=== PATIENT | male | born 1935 | race Caucasian/White ===

== ENCOUNTER 2019-10-08 08:22 | Outpatient (CLI) | payer MEDICARE, SELFPAY ==
--- NOTE | ~2019-10-08 | DEXA_ITS ---
BMD(1) Young-Adult(2) Age-Matched(3) Region (g/cm2) T-score Z-score WHO Classification L1 1.659 4.0 4.6 - L2 1.637 3.2 3.8 - L3 1.895 5.1 5.7 - L4 1.807 4.2 4.9 - L1-L4 1.757 4.2 4.8 - Trend: L1-L4 Change vs Change vs Measured Age BMD(1) Baseline Previous Date (years) (g/cm2) (%) (%) 10/08/2019 [age] 1[age]757 baseline - 1 - Statistically 68% of repeat scans fall within 1SD (+- 0.010 g/cm2 for AP Spine L1-L4) 2 - [place] (Combined NHANES (ages 20-30) / Wireless Seismic (ages 20-40)) AP Spine Reference Population (v112) 3 - Matched for Age, Weight (males 25-100 kg), Ethnic 11 - World Health Organization - Definition of Osteoporosis and Osteopenia for Women: Normal = T-score at or above -1.0 SD; Osteopenia = T-score between -1.0 and -2.5 SD; Osteoporosis = T-score at or below -2.5 SD; (WHO definitions only apply when a young healthy Women reference database is used to determine T-scores.) Printed: 10/08/2019 8:59:48 AM (13.60)76:3.00:50.00:12.0 0.00:9.72 0.60x1.05 27.6:%Fat=52.7% 0.00:0.00 0.00:0.00 Measured thickness not within mode range Filename: [id number] Scan Mode: Standard;OneScan 37.0 iRise [id number] BMD(1) Young-Adult(2,7) Age-Matched(3) Region (g/cm2) T-score Z-score WHO Classification Neck Left 1.185 0.9 2.4 - Right 1.047 -0.2 1.4 - Mean 1.116 0.4 1.9 - Difference 0.138 1.1 1.1 - Total Left 1.262 1.1 2.3 - Right 1.104 0.0 1.2 - Mean 1.183 0.6 1.8 - Difference 0.158 1.1 1.1 - Hip [place] Length Comparison (mm) KAI chart results unavailable Trend: Total Mean Change vs Change vs Measured Age BMD(1) Baseline Previous Date (years) (g/cm2) (%) (%) 10/08/2019 84.5 1[age]183 baseline - 1 - Statistically 68% of repeat scans fall within 1SD (+- 0.010 g/cm2 for DualFemur Total) 2 - [place] (Combined NHANES (ages 20-30) / Wireless Seismic (ages 20-40)) Femur Reference Population (v112) 3 - Matched for Age, Weight (males 25-100 kg), Ethnic 7 - DualFemur Total T-score difference is 1.1. Asymmetry is Significant. 11 - World Health Organization - Definition of Osteoporosis and Osteopenia for Women: Normal = T-score at or above -1.0 SD; Osteopenia = T-score between -1.0 and -2.5 SD; Osteoporosis = T-score at or below -2.5 SD; (WHO definitions only apply when a young healthy Women reference database is used to determine T-scores.) Printed: 10/08/2019 8:59:48 AM (13.60); Filename: [id number]; Right Femur; 19.8:%Fat=22.6%; Neck Angle (deg)= 47; Scan Mode: Standard 37.0 uGy; Left Femur; 19.0:%Fat=31.6%; Neck Angle (deg)= 64; Scan Mode: Standard 37.0 uGy sones [id number] Dear Brandi Jordan, Your patient Harry Rice completed a BMD test on 10/08/2019 using the sones DXA System (analysis version: 13.60) manufactured by [employer]. The following summarizes the results of our evaluation. PATIENT BIOGRAPHICAL: Name: Harry Rice Date: 1935 Height: 68.0 in. Gender: Male Exam Date: 10/08/2019 Weight: 180.0 lbs. Indications: Back Pain, Caffeinated drinks, , Height Loss Fractures:
== END 2019-10-08 08:23 | disposition home or self-care (01) ==
PROVIDERS: PCP Family Medicine; Visit Provider Family Medicine
DX: M81.0 Age-related osteoporosis without current pathological fracture (principal)
CPT/HCPCS: 77080